=== PATIENT | male | born 1940 | race Caucasian/White ===

== ENCOUNTER 2018-03-21 06:29 | Day surgery (SDC) | payer MEDICARE, OTHER ==
[~2018-03-21 06:29] MED LIST: Acetaminophen 325 MG Tab PO SCH; Lactated Ringers 1,000 ML IV SCH; Lidocaine 1%/Sod Bicarbonate in NS 8.4% 1 ML Syringe IDERM PRN; Pregabalin 25 MG Cap PO SCH; Sodium Chloride 0.9% 10 ML Syringe FLUSH PRN; oxyCODONE ER 10 MG TAB.ER PO SCH
[2018-03-21] MEDS ORDERED: Magnesium Hydroxide 400 MG/5 ML Susp 30 ML Cup PO PRN (06:50)
[2018-03-21] MEDS ORDERED: Naloxone 0.4 MG/ML SDV IVPUSH PRN (06:50)
[2018-03-21] MEDS ORDERED: Sennosides 8.6 MG Tab PO PRN (06:50)
[2018-03-21] MEDS ORDERED: Morphine 2 MG/ML Syringe IVPUSH PRN (06:50)
[2018-03-21] MEDS ORDERED: Bisacodyl 5 MG Tab PO PRN (06:50)
[2018-03-21] MEDS ORDERED: Vancomycin 1 GM SDV ONE (07:00)
[2018-03-21] MEDS ORDERED: ceFAZolin 1 GM Vial ONE ×3 (07:00→07:53)
[2018-03-21] MEDS ORDERED: Bupivacaine 0.25% 30 ML SDV ONE (07:00)
[2018-03-21] MEDS ORDERED: Iodine/Sodium Iodide 2% Tincture 30 ML Bottle ONE (07:00)
[2018-03-21] MEDS ORDERED: fentaNYL 100 MCG/2 ML SDV ONE (07:03)
[2018-03-21] MEDS ORDERED: Propofol 200 MG/20 ML SDV ONE ×3 (07:03→09:35)
[2018-03-21] MEDS ORDERED: Lidocaine 1% 4 ML ONE (07:04)
[2018-03-21] MEDS ORDERED: Bupivacaine 0.75% 30 ML SDV ONE (07:11)
--- NOTE | 2018-03-21 07:24 | PCM.PREANE ---
Preanesthetic Assessment - Anesthesia/Transfusion/Family Hx Anesthesia History: Prior Anesthesia Reaction Type of Anesthesia Reaction: Excessive Nausea/Vomiting Family History of Anesthesia Reaction: No Transfusion History: Unknown - Review of Systems General: No Symptoms Pulmonary: No Symptoms Cardiovascular: Dyspnea on Exertion Gastrointestinal: No Symptoms Neurological: Numbness (hands), Tingling (hands) Other: Reports: Diabetes (check at 0730 ), Sinus Problem (draining) - Physical Assessment NPO Status Date: 03/20/18 NPO Status Time: 00:00 Pulse: 79 O2 Sat by Pulse Oximetry: 94 Respiratory Rate: 20 Blood Pressure: 133/68 Temperature: 37.2 C Height: 1.85 m Weight: 134.853 kg ASA Class: 3 Mental Status: Alert & Oriented x3 Airway Class: Mallampati = 1 Dentition: Reports: Partial (upper), [place](s), Missing Tooth/Teeth Thyro-Mental Finger Breadths: 3 Mouth Opening Finger Breadths: 3 ROM/Head Extension: Full Lungs: Clear to Auscultation, Normal Respiratory Effort Cardiovascular: Regular Rate, Regular Rhythm, No Murmurs - Lab Values: Laboratory Last Values MRSA (PCR) Positive H 03/09/18 13:58 - Imaging/EKG Impressions: on chart SR 67 - Allergies Allergies/Adverse Reactions: Allergies Allergy/AdvReac Type Severity Reaction Status Date / Time No Known Allergies Allergy Verified 03/18/18 15:01 - Blood Blood Available: No Product(s) Available: None - Anesthesia Plan Pre-Op Medication Ordered: Beta Sue Beta Sue: Metoprolol Med Last Dose Date: 03/21/18 Med Last Dose Time: 03:00 - Acknowledgements Anesthesia Type Planned: Spinal Pt an Appropriate Candidate for the Planned Anesthesia: Yes Alternatives and Risks of Anesthesia Discussed w Pt/Guardian: Yes Pt/Guardian Understands and Agrees with Anesthesia Plan: Yes PreAnesthesia Questionnaire HEENT History: Reports: Impaired Vision, Other (See Below) Other HEENT History: impacted cerumen, wears glasses, has partials Cardiovascular History: Reports: CAD, High Cholesterol, Other (See Below) (CABG X 4 Jul 30 2016) Respiratory History: Reports: Other (See Below) Other Respiratory History: cough Gastrointestinal History: Reports: Hepatitis (denies) Genitourinary History: Reports: BPH, UTI, Recurrent ENGINEERING SPECIALIST TECHNICIAN History: Reports: None Musculoskeletal History: Reports: Arthritis, Back Pain, Chronic, Other (See Below) Other Musculoskeletal History: back pain, right wrist pain Neurological History: Reports: Other (See Below) Other Neuro History: laminectomy, radiculopathy, spinal stenosis Psychiatric History: Reports: Anxiety, Mood Swings Endocrine/Metabolic History: Reports: Diabetes, Type II, Other (See Below) Other Endocrine/Metabolic History: goiter Hematologic History: Reports: Other (See Below) Other Hematologic History: hypokalemia, leukocytosis Immunologic History: Reports: None Oncologic (Cancer) History: Reports: None Dermatologic History: Reports: Other (See Below) Other Dermatologic History: actinic keratosis, skin lesion - Past Surgical History Head Surgeries/Procedures: Reports: None HEENT Surgical History: Reports: Tonsillectomy Cardiovascular Surgical History: Reports: Coronary Artery Bypass Respiratory Surgical History: Reports: None GI Surgical History: Reports: Appendectomy Male Surgical History: Reports: Vasectomy Endocrine Surgical History: Reports: None Neurological Surgical History: Reports: Laminectomy Musculoskeletal Surgical History: Reports: Hip Replacement, Other (See Below) Other Musculoskeletal Surgeries/Procedures:: foot surgery, total hip (right) Oncologic Surgical History: Reports: None - SUBSTANCE USE Smoking Status *Q: Never Smoker Recreational Drug Use History: No - HOME MEDS Home Medications: Home Meds Acetaminophen 325 - 650 mg PO Q6HR PRN 09/02/16 [History] Gemfibrozil [Lopid] 600 mg PO DAILY 09/02/16 [History] Potassium Chloride [Klor-Con M20] 20 meq PO DAILY 09/02/16 [History] atorvaSTATin Calcium [Atorvastatin Calcium] 80 mg PO DAILY 09/02/16 [History] Aspirin [Halfprin] 81 mg PO DAILY 03/18/18 [History] Carvedilol 12.5 mg PO BID 03/18/18 [History] Chlorthalidone 50 mg PO DAILY 03/18/18 [History] Cholecalciferol (Vitamin D3) [Vitamin D3] 5,000 unit PO DAILY 03/18/18 [History] Tamsulosin HCl 0.4 mg PO DAILY 03/18/18 [History] - CURRENT (IN HOUSE) MEDS Current Meds: Current Medications Acetaminophen (Tylenol) 975 mg PO ONETIME [facility] Stop: 03/21/18 14:00 Aspirin (Ecotrin) 325 mg PO BID [facility] Bisacodyl (Dulcolax) 5 mg PO DAILY PRN PRN Reason: Constipation Morphine Sulfate 8 mg/Epinephrine HCl 0.3 mg/Cefuroxime Sodium 750 mg/Ketorolac Tromethamine 30 mg/Sodium Chloride 27.9 ml 0 mg .XX ONETIME ONE Stop: 03/21/18 08:31 Cyclobenzaprine HCl (Flexeril) 10 mg PO TID PRN PRN Reason: Spasms Docusate Sodium (Colace) 100 mg PO BID [facility] Famotidine (Pepcid) 20 mg PO Q12H [facility] Lactated Ringer's (Ringers, Lactated) 1,000 mls @ 125 mls/hr IV ASDIRECTED [facility] Stop: 03/21/18 23:00 Cefazolin Sodium/Dextrose 2 gm (/ Premix) 50 mls @ 100 mls/hr IV Q8H [facility] Stop: 03/21/18 23:29 Ketorolac Tromethamine (Toradol) 15 mg IVPUSH Q6H PRN PRN Reason: Pain Lidocaine/Sodium Bicarbonate (Buffered Lidocaine 1% In Ns 8.4%) 0.25 ml IDERM ONETIME PRN PRN Reason: Prior to IV Start Stop: 03/21/18 18:00 Magnesium Hydroxide (Milk Of Magnesia) 30 ml PO BID PRN PRN Reason: Constipation Morphine Sulfate (Morphine) 2 mg IVPUSH Q2H PRN PRN Reason: Breakthrough Pain Naloxone HCl (Narcan) 0.1 mg IVPUSH Q5M PRN PRN Reason: Oversedation Ondansetron HCl (Zofran) 4 mg IVPUSH Q6H PRN PRN Reason: Nausea/Vomiting Oxycodone HCl (Oxycontin) 10 mg PO ONETIME [facility] Stop: 03/21/18 14:00 Oxycodone/Acetaminophen (Percocet 325-5 Mg) 1 - 2 tab PO Q4H PRN PRN Reason: Pain Pregabalin (Lyrica) 50 mg PO ONETIME [facility] Stop: 03/21/18 14:00 Senna (Senna) 8.6 mg PO BID PRN PRN Reason: Constipation Sodium Chloride (Saline Flush) 10 ml FLUSH ASDIRECTED PRN PRN Reason: Keep Vein Open Stop: 03/21/18 18:00 Vancomycin HCl (Pharmacy To Dose - Vancomycin) 1 dose .XX ASDIRECTED [facility] Discontinued Medications Bupivacaine HCl (Marcaine 0.25%) Confirm Administered Dose 30 ml .ROUTE .STK- MED ONE Stop: 03/21/18 07:01 Bupivacaine HCl (Sensorcaine-Mpf 0.75%) Confirm Administered Dose 30 ml .ROUTE .STK-MED ONE Stop: 03/21/18 07:12 Cefazolin Sodium (Ancef) Confirm Administered Dose 2 gm .ROUTE .STK-MED ONE Stop: 03/21/18 07:01 Cefazolin Sodium (Ancef) Confirm Administered Dose 2 gm .ROUTE .STK-MED ONE Stop: 03/21/18 07:05 Fentanyl (Sublimaze) Confirm Administered Dose 100 mcg .ROUTE .STK-MED ONE Stop: 03/21/18 07:04 Lidocaine HCl (Xylocaine-Mpf 1%) Confirm Administered Dose 4 mls @ as directed .ROUTE .STK-MED ONE Stop: 03/21/18 07:05 Lidocaine HCl (Xylocaine-Mpf 1%) Confirm Administered Dose 5 mls @ as directed .ROUTE .STK-MED ONE Stop: 03/21/18 07:12 Iodine (Iodine 2% Mild Tincture) Confirm Administered Dose 30 ml .ROUTE .STK- MED ONE Stop: 03/21/18 07:01 Propofol (Diprivan 20 Ml) Confirm Administered Dose 200 mg .ROUTE .STK-MED ONE Stop: 03/21/18 07:04 Tranexamic Acid (Cyklokapron) Confirm Administered Dose 1,000 mg .ROUTE .STK- MED ONE Stop: 03/21/18 07:01 Vancomycin HCl (Vancomycin) Confirm Administered Dose 1 gm .ROUTE .STK-MED ONE Stop: 03/21/18 07:01
[2018-03-21] MEDS ORDERED: Vancomycin 2 GM in Sodium Chloride 0.9% 500 ML IV ONE (07:30)
[2018-03-21] MEDS ORDERED: EPINEPHrine 1 MG/ML SDV ONE (07:35)
[2018-03-21] MEDS ORDERED: Ropivacaine 0.5% 5 MG/ML 30 ML SDV ONE (07:35)
[2018-03-21] MEDS ORDERED: Lactated Ringers 1,000 ML ONE (08:45)
[2018-03-21] MEDS: Morphine 8 MG, EPINEPHrine 0.3 MG, Cefuroxime 750 MG, Ketorolac 30 MG, Sodium Chloride ... ONE ×10 (09:26→16:33)
[2018-03-21] MEDS ORDERED: fentaNYL 100 MCG/2 ML SDV IVPUSH PRN (10:11)
[2018-03-21] MEDS ORDERED: Ketorolac 30 MG/ML SDV IVPUSH PRN (10:11)
--- NOTE | 2018-03-21 10:13 | PCM.POSTAN ---
POST ANESTHESIA ASSESSMENT - MENTAL STATUS Mental Status: Alert, Oriented - VITAL SIGNS Pulse Rate: 67 SaO2: 95 Resp Rate: 12 Blood Pressure: 127/64 Temperature: 36.8 C - RESPIRATORY Respiratory Status: Respiratory Rate WNL, Airway Patent, O2 Saturation Stable, Supplemental Oxygen - CARDIOVASCULAR CV Status: Pulse Rate WNL, Blood Pressure Stable - GASTROINTESTINAL GI Status: No Symptoms - PAIN Pain Score: 0 - POST OP HYDRATION Hydration Status: Adequate & Stable - OBSERVATIONS Free Text/Narrative:: no anesthesia complications noted
--- NOTE | 2018-03-21 10:53 | PCM.SN ---
- Free Text/Narrative Note: Left selective femoral nerve block at the adductor canal for post-procedure pain control Time Out: 1029 Start: 1029 End: 1040 Chart reviewed. Consent signed. Questions answered. Appropriate monitors applied. Time out performed. Left mid-shaft femur evaluated with ultrasound. Scanning medially femur, I was able to identify the femoral artery in the adductor canal. The saphenous nerve was lateral to the artery. The skin was prepped lateral to the ultrasound probe with chlorahexadine. The 21ga 4 insulated block needle was inserted under direct ultrasound guidance into the adductor canal. 25 mL of 0.5% ropivacaine with 1:200,000 epinephrine was injected cirmcumferentially about the nerve with intermittent negative aspiration every 5mL. Patient tolerated the procedure well. See pictures on progress note and vital signs on nurses notes. Block completed postoperatively. Uri Marino CRNA
[2018-03-21] MEDS: Acetaminophen/oxyCODONE 325-5 MG Tab PO PRN ×2 (14:00→20:51)
[2018-03-21] MEDS: Ketorolac 15 MG/ML SDV IVPUSH PRN ×2 (14:00→20:52)
[2018-03-21] MEDS: ceFAZolin 2 GM in Premix Bag 1 BAG IV SCH (14:01)
[2018-03-21] MEDS: Ondansetron 4 MG/2 ML SDV IVPUSH PRN (15:38)
--- NOTE | 2018-03-21 18:55 | PCM.SN ---
- Free Text/Narrative Note: In to see Abner. Overall he is doing well s/p L TKA day 0. He currently states his pain is controlled. He did have some nausea earlier today after working with PT but Zofran was given and he is feeling better. Denies F/C, Headache, V/D, Chest pain, SOB, Cough. Working with Physical Therapy. Urinating. Using Incentive Spirometry. No supplemental O2. DVT prophylaxis. Physical Exam unremarkable- PERRLA, Lungs Clear, Normal Heart sounds, Neurovascularly intact in extremities with 2+ pulses. No other concerns from nursing.
[2018-03-21] MEDS: Gemfibrozil 600 MG Tab PO SCH (20:53)
[2018-03-21] MEDS: Potassium Chloride 20 MEQ Tab.ER PO SCH (20:53)
[2018-03-21] MEDS: Docusate Sodium 100 MG Cap PO SCH (20:53)
[2018-03-21] MEDS: Famotidine 20 MG Tab PO SCH (20:54)
[2018-03-21] MEDS: Carvedilol 12.5 MG Tab PO SCH (20:54)
[2018-03-21] MEDS ORDERED: Cyclobenzaprine 10 MG Tab PO PRN (21:00)
[2018-03-22] MEDS: Acetaminophen/oxyCODONE 325-5 MG Tab PO PRN ×3 (01:13→13:42)
[2018-03-22] MEDS: ceFAZolin 2 GM in Premix Bag 1 BAG IV SCH ×2 (01:13→06:24)
[2018-03-22] MEDS: Ketorolac 15 MG/ML SDV IVPUSH PRN (06:25)
--- NOTE | 2018-03-22 06:51 | PCM.CONSN ---
- General Info Date of Service: 03/22/18 Subjective Update: In to see Abner. He was having some nausea this AM which has since resolved. He has been working with therapies and doing well. No patient or nursing concerns. Functional Status: Reports: Pain Controlled, Tolerating Diet, Ambulating, Urinating, Incentive Spirometry. Denies: New Symptoms - Review of Systems General: Reports: No Symptoms. Denies: Weakness, Fatigue, Malaise HEENT: Reports: No Symptoms. Denies: Headaches, Sore Throat Pulmonary: Reports: No Symptoms. Denies: Shortness of Breath, Cough, Sputum, Wheezing Cardiovascular: Reports: No Symptoms. Denies: Chest Pain, Palpitations Gastrointestinal: Reports: No Symptoms. Denies: Abdominal Pain, Constipation, Diarrhea, Nausea (earlier but has since resolved ), Vomiting Genitourinary: Reports: No Symptoms Musculoskeletal: Reports: No Symptoms Skin: Reports: No Symptoms Neurological: Reports: No Symptoms. Denies: Confusion Psychiatric: Reports: No Symptoms - Patient Data Vitals - Most Recent: Last Vital Signs Temp 98.4 F 03/21/18 15:44 Pulse 70 03/21/18 20:54 Resp 16 03/21/18 15:44 BP 117/76 03/21/18 20:54 Pulse Ox 92 L 03/21/18 22:39 Weight - Most Recent: 297 lb 4.8 oz I&O - Last 24 Hours: Intake & Output 03/21/18 03/21/18 03/22/18 14:59 22:59 06:59 Intake Total 125 970 Output Total 175 450 Balance -50 520 Lab Results Last 24 Hours: Laboratory Results - last 24 hr 03/21/18 03/22/18 03/22/18 Range/Units 07:34 05:18 05:18 WBC 10.63 H (4.23-9.07) K/mm3 RBC 3.93 L (4.63-6.08) M/mm3 Hgb 12.8 L (13.7-17.5) gm/L Hct 37.7 L (40.1-51.0) % MCV 95.9 H (79.0-92.2) fl MCH 32.6 H (25.7-32.2) pg MCHC 34.0 (32.2-35.5) g/dl RDW Std Deviation 43.2 (35.1-43.9) fL Plt Count 180 (163-337) K/mm3 MPV 9.0 L (9.4-12.3) fl Sodium 140 (136-145) mEq/L Potassium 3.6 (3.5-5.1) mEq/L Chloride 104 (98-107) mEq/L Carbon Dioxide 29 (21-32) mEq/L Anion Gap 10.6 (5-15) BUN 22 H (7-18) mg/dL Creatinine 1.3 (0.7-1.3) mg/dL Est Cr Clr Drug Dosing 52.07 mL/min Estimated GFR (MDRD) 53 (>60) mL/min BUN/Creatinine Ratio 16.9 (14-18) Glucose 150 H (83-115) mg/dL POC Glucose 134 H (83-110) mg/dL Calcium 8.8 (8.5-10.1) mg/dL Total Bilirubin 0.9 (0.2-1.0) mg/dL AST 23 (15-37) U/L ALT 16 (16-63) U/L Alkaline Phosphatase 86 (46-116) U/L Total Protein 6.5 (6.4-8.2) g/dl Albumin 3.1 L (3.4-5.0) g/dl Globulin 3.4 gm/dL Albumin/Globulin Ratio 0.9 L (1-2) Med Orders - Current: Current Medications Aspirin (Ecotrin) 325 mg PO BID [facility] Bisacodyl (Dulcolax) 5 mg PO DAILY PRN PRN Reason: Constipation Carvedilol (Coreg) 12.5 mg PO BID [facility] Last Admin: 03/21/18 20:54 Dose: 12.5 mg Cholecalciferol (Vitamin D3) 5,000 unit PO DAILY [facility] Cyclobenzaprine HCl (Flexeril) 10 mg PO TID PRN PRN Reason: Spasms Docusate Sodium (Colace) 100 mg PO BID [facility] Last Admin: 03/21/18 20:53 Dose: 100 mg Famotidine (Pepcid) 20 mg PO Q12H [facility] Last Admin: 03/21/18 20:54 Dose: 20 mg Gemfibrozil (Lopid) 600 mg PO BID [facility] Last Admin: 03/21/18 20:53 Dose: 600 mg Cefazolin Sodium/Dextrose 2 gm (/ Premix) 50 mls @ 100 mls/hr IV Q8H [facility] Stop: 03/22/18 07:29 Last Admin: 03/22/18 06:24 Dose: 100 mls/hr Lisinopril (Prinivil) 40 mg PO DAILY [facility] Magnesium Hydroxide (Milk Of Magnesia) 30 ml PO BID PRN PRN Reason: Constipation Morphine Sulfate (Morphine) 2 mg IVPUSH Q2H PRN PRN Reason: Breakthrough Pain Multivitamins (Thera) 1 each PO DAILY [facility] Naloxone HCl (Narcan) 0.1 mg IVPUSH Q5M PRN PRN Reason: Oversedation Ondansetron HCl (Zofran) 4 mg IVPUSH Q6H PRN PRN Reason: Nausea/Vomiting Last Admin: 03/21/18 15:38 Dose: 4 mg Oxycodone/Acetaminophen (Percocet 325-5 Mg) 1 - 2 tab PO Q4H PRN PRN Reason: Pain Last Admin: 03/22/18 06:24 Dose: 2 tab Chlorthalidone 50 Mg 0 each PO DAILY [facility] Potassium Chloride (Klor-Con M20) 20 meq PO BID [facility] Last Admin: 03/21/18 20:53 Dose: 20 meq Rosuvastatin Calcium (Crestor) 20 mg PO DAILY [facility] Senna (Senna) 8.6 mg PO BID PRN PRN Reason: Constipation Tamsulosin HCl (Flomax) 0.4 mg PO DAILY [facility] Discontinued Medications Acetaminophen (Tylenol) 975 mg PO ONETIME [facility] Stop: 03/21/18 14:00 Last Admin: 03/21/18 07:35 Dose: 975 mg Bupivacaine HCl (Marcaine 0.25%) Confirm Administered Dose 30 ml .ROUTE .STK- MED ONE Stop: 03/21/18 07:01 Last Admin: 03/21/18 09:26 Dose: 30 ml Bupivacaine HCl (Sensorcaine-Mpf 0.75%) Confirm Administered Dose 30 ml .ROUTE .STK-MED ONE Stop: 03/21/18 07:12 Cefazolin Sodium (Ancef) Confirm Administered Dose 2 gm .ROUTE .STK-MED ONE Stop: 03/21/18 07:01 Last Admin: 03/21/18 09:22 Dose: 2 gm Cefazolin Sodium (Ancef) Confirm Administered Dose 2 gm .ROUTE .STK-MED ONE Stop: 03/21/18 07:05 Cefazolin Sodium (Ancef) Confirm Administered Dose 1 gm .ROUTE .STK-MED ONE Stop: 03/21/18 07:54 Morphine Sulfate 8 mg/Epinephrine HCl 0.3 mg/Cefuroxime Sodium 750 mg/Ketorolac Tromethamine 30 mg/Sodium Chloride 27.9 ml 0 mg .XX ONETIME ONE Stop: 03/21/18 08:31 Last Admin: 03/21/18 16:33 Dose: Not Given Epinephrine HCl (Adrenalin) Confirm Administered Dose 1 mg .ROUTE .STK-MED ONE Stop: 03/21/18 07:36 Fentanyl (Sublimaze) Confirm Administered Dose 100 mcg .ROUTE .STK-MED ONE Stop: 03/21/18 07:04 Fentanyl (Sublimaze) 50 mcg IVPUSH Q5M PRN PRN Reason: Pain Stop: 03/21/18 18:00 Lactated Ringer's (Ringers, Lactated) 1,000 mls @ 125 mls/hr IV ASDIRECTED [facility] Stop: 03/21/18 23:00 Last Admin: 03/21/18 07:40 Dose: 125 mls/hr Lidocaine HCl (Xylocaine-Mpf 1%) Confirm Administered Dose 4 mls @ as directed .ROUTE .STK-MED ONE Stop: 03/21/18 07:05 Lidocaine HCl (Xylocaine-Mpf 1%) Confirm Administered Dose 5 mls @ as directed .ROUTE .STK-MED ONE Stop: 03/21/18 07:12 Vancomycin HCl 2 gm/ Sodium (Chloride) 500 mls @ 250 mls/hr IV ONETIME ONE Stop: 03/21/18 09:29 Last Admin: 03/21/18 07:55 Dose: 250 mls/hr Lactated Ringer's (Ringers, Lactated) Confirm Administered Dose 1,000 mls @ as directed .ROUTE .STK-MED ONE Stop: 03/21/18 08:46 Iodine (Iodine 2% Mild Tincture) Confirm Administered Dose 30 ml .ROUTE .STK- MED ONE Stop: 03/21/18 07:01 Last Admin: 03/21/18 09:20 Dose: 18 ml Ketorolac Tromethamine (Toradol) 15 mg IVPUSH Q6H PRN PRN Reason: Pain Last Admin: 03/22/18 06:25 Dose: 15 mg Ketorolac Tromethamine (Toradol) 30 mg IVPUSH ONETIME PRN PRN Reason: Pain Stop: 03/21/18 18:00 Lidocaine/Sodium Bicarbonate (Buffered Lidocaine 1% In Ns 8.4%) 0.25 ml IDERM ONETIME PRN PRN Reason: Prior to IV Start Stop: 03/21/18 18:00 Last Admin: 03/21/18 07:39 Dose: 0.25 ml Oxycodone HCl (Oxycontin) 10 mg PO ONETIME [facility] Stop: 03/21/18 14:00 Last Admin: 03/21/18 07:35 Dose: 10 mg Pregabalin (Lyrica) 50 mg PO ONETIME [facility] Stop: 03/21/18 14:00 Last Admin: 03/21/18 07:35 Dose: 50 mg Propofol (Diprivan 20 Ml) Confirm Administered Dose 200 mg .ROUTE .STK-MED ONE Stop: 03/21/18 07:04 Propofol (Diprivan 20 Ml) Confirm Administered Dose 200 mg .ROUTE .STK-MED ONE Stop: 03/21/18 09:00 Propofol (Diprivan 20 Ml) Confirm Administered Dose 200 mg .ROUTE .STK-MED ONE Stop: 03/21/18 09:36 Ropivacaine (Naropin 0.5%) Confirm Administered Dose 30 ml .ROUTE .STK-MED ONE Stop: 03/21/18 07:36 Sodium Chloride (Saline Flush) 10 ml FLUSH ASDIRECTED PRN PRN Reason: Keep Vein Open Stop: 03/21/18 18:00 Tranexamic Acid (Cyklokapron) Confirm Administered Dose 1,000 mg .ROUTE .STK- MED ONE Stop: 03/21/18 07:01 Last Admin: 03/21/18 09:29 Dose: 1,000 mg Vancomycin HCl (Vancomycin) Confirm Administered Dose 1 gm .ROUTE .STK-MED ONE Stop: 03/21/18 07:01 Last Admin: 03/21/18 09:28 Dose: 1 gm Vancomycin HCl (Pharmacy To Dose - Vancomycin) 0 dose .XX ASDIRECTED PRN PRN Reason: RX TO DOSE VANCOMYCIN Stop: 03/21/18 12:00 - Exam Quality Assessment: DVT Prophylaxis General: Alert, Oriented, Cooperative, No Acute Distress HEENT: Pupils Equal, Pupils Reactive, EOMI, Mucous Membr. Moist/[place] Neck: Supple Lungs: Clear to Auscultation, Normal Respiratory Effort Cardiovascular: Regular Rate, Regular Rhythm GI/Abdominal Exam: Normal Bowel Sounds, Soft, Non-Tender, No Organomegaly, No Distention (Male) Exam: Deferred, Testicular Tenderness (R) Back Exam: Full Range of Motion Extremities: No Pedal Edema, Normal Capillary Refill, Leg Pain, Limited Range of Motion, Other (Bandage in place on left leg. Cooling pack in place ) Peripheral Pulses: 2+: Radial (L), Radial (R), Dorsalis Pedis (L), Dorsalis Pedis (R) Skin: Warm, Dry, Intact Wound/Incisions: Dressing Dry and Intact, No Drainage Neurological: No New Focal Deficit Psy/Mental Status: Alert, Normal Affect, Normal Mood Consult PN Assessment/Plan POD#: 1 Procedures: Procedures ASSAY OF CK (CPK) (11/15/14) ASSAY OF PREALBUMIN (02/22/18) ASSAY OF PSA TOTAL (08/31/17) ASSAY OF SERUM ALBUMIN (02/22/18) ASSAY THYROID STIM HORMONE (10/26/16) C-REACTIVE PROTEIN (11/11/16) CARDIAC REHAB/MONITOR (10/07/16) CARDIOVASCULAR STRESS TEST (07/15/16) CHEST X-RAY 2VW FRONTAL&LATL (10/14/16) COMPLETE CBC W/AUTO DIFF WBC (11/11/16) COMPREHEN METABOLIC PANEL (10/26/16) DRAIN/INJ JOINT/BURSA W/O US (10/15/17) DXA BONE DENSITY AXIAL (02/25/18) GLYCOSYLATED HEMOGLOBIN TEST (02/22/18) HT MUSCLE IMAGE SPECT MULT (07/15/16) LIPID PANEL (10/11/17) METABOLIC PANEL TOTAL CA (02/22/18) MRI CHEST SPINE W/O DYE (01/06/17) MRI LUMBAR SPINE W/O DYE (09/15/17) PROTHROMBIN TIME (02/22/18) ROUTINE VENIPUNCTURE (09/23/15) THROMBOPLASTIN TIME PARTIAL (02/22/18) UR ALBUMIN QUANTITATIVE (10/01/16) URINALYSIS AUTO W/SCOPE (02/22/18) URINE CULTURE/COLONY COUNT (02/22/18) X-RAY EXAM CHEST 2 VIEWS (02/22/18) X-RAY EXAM OF WRIST (10/03/15) (1) S/P total knee arthroplasty SNOMED Code(s): 3966770760121, 986319622, 9514146912798 Code(s): Z96.659 - PRESENCE OF UNSPECIFIED ARTIFICIAL KNEE JOINT Priority: High Current Visit: Yes Qualifiers: Laterality: left Qualified Code(s): Z96.652 - Presence of left artificial knee joint (2) Osteoarthritis SNOMED Code(s): 560351197 Code(s): M19.90 - UNSPECIFIED OSTEOARTHRITIS, UNSPECIFIED SITE Priority: High Current Visit: Yes Qualifiers: Osteoarthritis location: knee Osteoarthritis type: primary Laterality: left Qualified Code(s): M17.12 - Unilateral primary osteoarthritis, left knee (3) BPH (benign prostatic hyperplasia) SNOMED Code(s): 723884597 Code(s): N40.0 - BENIGN PROSTATIC HYPERPLASIA WITHOUT LOWER URINRY TRACT SYMP Priority: Low Current Visit: No Qualifiers: Lower urinary tract symptom presence: unspecified whether lower urinary tract symptoms present Qualified Code(s): N40.0 - Benign prostatic hyperplasia without lower urinary tract symptoms (4) CAD (coronary artery disease) SNOMED Code(s): 14699002 Code(s): I25.10 - ATHSCL HEART DISEASE OF [place] CORONARY ARTERY W/O ANG PCTRS Priority: Medium Current Visit: No Qualifiers: Coronary Disease-Associated Artery/Lesion type: unspecified vessel or lesion type [place] vs. transplanted heart: [place] heart Associated angina: angina presence unspecified Qualified Code(s): I25.10 - Atherosclerotic heart disease of [place] coronary artery without angina pectoris (5) Type II diabetes mellitus SNOMED Code(s): 56597582 Code(s): E11.9 - TYPE 2 DIABETES MELLITUS WITHOUT COMPLICATIONS Priority: Medium Current Visit: Yes Qualifiers: Diabetes mellitus snf insulin use: without supervisor intermediates use Diabetes mellitus complication status: with unspecified complications Qualified Code(s) : E11.8 - Type 2 diabetes mellitus with unspecified complications (6) HTN (hypertension) SNOMED Code(s): 30732695 Code(s): I10 - ESSENTIAL (PRIMARY) HYPERTENSION Priority: Medium Current Visit: No Qualifiers: Hypertension type: unspecified Qualified Code(s): I10 - Essential (primary ) hypertension (7) S/P CABG (coronary artery bypass graft) SNOMED Code(s): 724255274, 758358352, 202947374 Code(s): Z95.1 - PRESENCE OF AORTOCORONARY BYPASS GRAFT Priority: Medium Current Visit: No (8) Elevated LFTs SNOMED Code(s): 537933162, 058122711 Code(s): R94.5 - ABNORMAL RESULTS OF LIVER FUNCTION STUDIES Priority: Low Current Visit: No (9) Goiter SNOMED Code(s): 6858763 Code(s): E04.9 - NONTOXIC GOITER, UNSPECIFIED Priority: Low Current Visit : No (10) Anxiety SNOMED Code(s): 81908988 Code(s): F41.9 - ANXIETY DISORDER, UNSPECIFIED Priority: Low Current Visit: No (11) History of hepatitis B SNOMED Code(s): 873805315 Code(s): Z86.19 - PERSONAL HISTORY OF OTHER INFECTIOUS AND PARASITIC DISEASES Priority: Low Current Visit: No (12) HLD (hyperlipidemia) SNOMED Code(s): 19233545 Code(s): E78.5 - HYPERLIPIDEMIA, UNSPECIFIED Priority: Low Current Visit : No Qualifiers: Hyperlipidemia type: unspecified Qualified Code(s): E78.5 - Hyperlipidemia , unspecified (13) Positive result for methicillin resistant Staphylococcus aureus (MRSA) screening SNOMED Code(s): 616526132 Code(s): A49.02 - METHICILLIN RESIS STAPH INFECTION, UNSP SITE Priority: Medium Current Visit: No Comment: Nasal swab Problem List Initiated/Reviewed/Updated: Yes Plan: I/P: Acute: S/P left total knee arthroplasty - post-operative day 1 -DVT prophylaxis and pain management per primary care team -PT/OT -IS/RT -Monitor oxygen saturation -Titrate oxygen as needed -Vital signs stable -Monitor labs -Pre-operative Hgb was 15.5, now 12.8 -Pre-operative GFR was >60, now 53 Osteoarthritis of left knee -Pain management per primary care team Post-operative nausea, resolved -Has not vomited -Zofran and scopolamine as needed Chronic: BPH CAD Type II DM HTN Hx/o CABG Lammectomy stenosis Hx/o Abnormal LFTs [place] Anxiety Hx/o Hepatitis B HLD Positive MRSA screen pre-operatively Plan: CM for discharge planning GI prophylaxis Home medications as indicated Other orders as listed above Routine AM labs He is a full code. His PCP is Cassie Ng NP Overall from a hospitalist standpoint Abner is doing well. Labs and vital signs have been stable and pain is controlled. He has been up working with therapies. He has urinated and he is off oxygen. He has been utilizing his IS. He was nauseated this AM which hindered his ability to work with therapies. Zofran and a scopolamine patch were ordered and his nausea resolved. He is cleared from discharge pending primary team and PT/OT approval. Thank you for allowing us to participate in the care of this patient!!
--- NOTE | 2018-03-22 07:41 | CR ---
Left knee: AP and lateral views of the left knee were obtained. Comparison: No prior left knee exam. Knee prosthesis is seen. Components are aligned. Underlying bony structures are intact. Soft tissue air is seen. Impression: 1. Satisfactory postop radiographic appearance of recently placed left knee prosthesis. Diagnostic code #2
--- NOTE | 2018-03-22 07:42 | PCM.SURGPN ---
- General Info Date of Service: 03/22/18 POD#: 1 Functional Status: Reports: Pain Controlled, Tolerating Diet, Ambulating, Urinating, Incentive Spirometry - Patient Data Vitals - Most Recent: Last Vital Signs Temp 98.2 F 03/22/18 06:24 Pulse 79 03/22/18 06:24 Resp 18 03/22/18 06:24 BP 135/73 03/22/18 06:24 Pulse Ox 92 L 03/22/18 06:24 Weight - Most Recent: 297 lb 4.8 oz I&O - Last 24 Hours: Intake & Output 03/21/18 03/22/18 03/22/18 22:59 06:59 14:59 Intake Total 970 400 Output Total 450 600 Balance 520 -200 Lab Results Last 24 Hrs: Laboratory Results - last 24 hr 03/21/18 03/22/18 03/22/18 Range/Units 07:34 05:18 05:18 WBC 10.63 H (4.23-9.07) K/mm3 RBC 3.93 L (4.63-6.08) M/mm3 Hgb 12.8 L (13.7-17.5) gm/L Hct 37.7 L (40.1-51.0) % MCV 95.9 H (79.0-92.2) fl MCH 32.6 H (25.7-32.2) pg MCHC 34.0 (32.2-35.5) g/dl RDW Std Deviation 43.2 (35.1-43.9) fL Plt Count 180 (163-337) K/mm3 MPV 9.0 L (9.4-12.3) fl Sodium 140 (136-145) mEq/L Potassium 3.6 (3.5-5.1) mEq/L Chloride 104 (98-107) mEq/L Carbon Dioxide 29 (21-32) mEq/L Anion Gap 10.6 (5-15) BUN 22 H (7-18) mg/dL Creatinine 1.3 (0.7-1.3) mg/dL Est Cr Clr Drug Dosing 52.07 mL/min Estimated GFR (MDRD) 53 (>60) mL/min BUN/Creatinine Ratio 16.9 (14-18) Glucose 150 H (83-115) mg/dL POC Glucose 134 H (83-110) mg/dL Calcium 8.8 (8.5-10.1) mg/dL Total Bilirubin 0.9 (0.2-1.0) mg/dL AST 23 (15-37) U/L ALT 16 (16-63) U/L Alkaline Phosphatase 86 (46-116) U/L Total Protein 6.5 (6.4-8.2) g/dl Albumin 3.1 L (3.4-5.0) g/dl Globulin 3.4 gm/dL Albumin/Globulin Ratio 0.9 L (1-2) Med Orders - Current: Current Medications Aspirin (Ecotrin) 325 mg PO BID [facility] Bisacodyl (Dulcolax) 5 mg PO DAILY PRN PRN Reason: Constipation Carvedilol (Coreg) 12.5 mg PO BID [facility] Last Admin: 03/21/18 20:54 Dose: 12.5 mg Cholecalciferol (Vitamin D3) 5,000 unit PO DAILY [facility] Cyclobenzaprine HCl (Flexeril) 10 mg PO TID PRN PRN Reason: Spasms Docusate Sodium (Colace) 100 mg PO BID [facility] Last Admin: 03/21/18 20:53 Dose: 100 mg Famotidine (Pepcid) 20 mg PO Q12H [facility] Last Admin: 03/21/18 20:54 Dose: 20 mg Gemfibrozil (Lopid) 600 mg PO BID [facility] Last Admin: 03/21/18 20:53 Dose: 600 mg Lisinopril (Prinivil) 40 mg PO DAILY [facility] Magnesium Hydroxide (Milk Of Magnesia) 30 ml PO BID PRN PRN Reason: Constipation Morphine Sulfate (Morphine) 2 mg IVPUSH Q2H PRN PRN Reason: Breakthrough Pain Multivitamins (Thera) 1 each PO DAILY [facility] Naloxone HCl (Narcan) 0.1 mg IVPUSH Q5M PRN PRN Reason: Oversedation Ondansetron HCl (Zofran) 4 mg IVPUSH Q6H PRN PRN Reason: Nausea/Vomiting Last Admin: 03/21/18 15:38 Dose: 4 mg Oxycodone/Acetaminophen (Percocet 325-5 Mg) 1 - 2 tab PO Q4H PRN PRN Reason: Pain Last Admin: 03/22/18 06:24 Dose: 2 tab Chlorthalidone 50 Mg 0 each PO DAILY [facility] Potassium Chloride (Klor-Con M20) 20 meq PO BID [facility] Last Admin: 03/21/18 20:53 Dose: 20 meq Rosuvastatin Calcium (Crestor) 20 mg PO DAILY [facility] Senna (Senna) 8.6 mg PO BID PRN PRN Reason: Constipation Tamsulosin HCl (Flomax) 0.4 mg PO DAILY [facility] Discontinued Medications Acetaminophen (Tylenol) 975 mg PO ONETIME [facility] Stop: 03/21/18 14:00 Last Admin: 03/21/18 07:35 Dose: 975 mg Bupivacaine HCl (Marcaine 0.25%) Confirm Administered Dose 30 ml .ROUTE .STK- MED ONE Stop: 03/21/18 07:01 Last Admin: 03/21/18 09:26 Dose: 30 ml Bupivacaine HCl (Sensorcaine-Mpf 0.75%) Confirm Administered Dose 30 ml .ROUTE .STK-MED ONE Stop: 03/21/18 07:12 Cefazolin Sodium (Ancef) Confirm Administered Dose 2 gm .ROUTE .STK-MED ONE Stop: 03/21/18 07:01 Last Admin: 03/21/18 09:22 Dose: 2 gm Cefazolin Sodium (Ancef) Confirm Administered Dose 2 gm .ROUTE .STK-MED ONE Stop: 03/21/18 07:05 Cefazolin Sodium (Ancef) Confirm Administered Dose 1 gm .ROUTE .STK-MED ONE Stop: 03/21/18 07:54 Morphine Sulfate 8 mg/Epinephrine HCl 0.3 mg/Cefuroxime Sodium 750 mg/Ketorolac Tromethamine 30 mg/Sodium Chloride 27.9 ml 0 mg .XX ONETIME ONE Stop: 03/21/18 08:31 Last Admin: 03/21/18 16:33 Dose: Not Given Epinephrine HCl (Adrenalin) Confirm Administered Dose 1 mg .ROUTE .STK-MED ONE Stop: 03/21/18 07:36 Fentanyl (Sublimaze) Confirm Administered Dose 100 mcg .ROUTE .STK-MED ONE Stop: 03/21/18 07:04 Fentanyl (Sublimaze) 50 mcg IVPUSH Q5M PRN PRN Reason: Pain Stop: 03/21/18 18:00 Lactated Ringer's (Ringers, Lactated) 1,000 mls @ 125 mls/hr IV ASDIRECTED [facility] Stop: 03/21/18 23:00 Last Admin: 03/21/18 07:40 Dose: 125 mls/hr Cefazolin Sodium/Dextrose 2 gm (/ Premix) 50 mls @ 100 mls/hr IV Q8H [facility] Stop: 03/22/18 07:29 Last Admin: 03/22/18 06:24 Dose: 100 mls/hr Lidocaine HCl (Xylocaine-Mpf 1%) Confirm Administered Dose 4 mls @ as directed .ROUTE .STK-MED ONE Stop: 03/21/18 07:05 Lidocaine HCl (Xylocaine-Mpf 1%) Confirm Administered Dose 5 mls @ as directed .ROUTE .STK-MED ONE Stop: 03/21/18 07:12 Vancomycin HCl 2 gm/ Sodium (Chloride) 500 mls @ 250 mls/hr IV ONETIME ONE Stop: 03/21/18 09:29 Last Admin: 03/21/18 07:55 Dose: 250 mls/hr Lactated Ringer's (Ringers, Lactated) Confirm Administered Dose 1,000 mls @ as directed .ROUTE .STK-MED ONE Stop: 03/21/18 08:46 Iodine (Iodine 2% Mild Tincture) Confirm Administered Dose 30 ml .ROUTE .STK- MED ONE Stop: 03/21/18 07:01 Last Admin: 03/21/18 09:20 Dose: 18 ml Ketorolac Tromethamine (Toradol) 15 mg IVPUSH Q6H PRN PRN Reason: Pain Last Admin: 03/22/18 06:25 Dose: 15 mg Ketorolac Tromethamine (Toradol) 30 mg IVPUSH ONETIME PRN PRN Reason: Pain Stop: 03/21/18 18:00 Lidocaine/Sodium Bicarbonate (Buffered Lidocaine 1% In Ns 8.4%) 0.25 ml IDERM ONETIME PRN PRN Reason: Prior to IV Start Stop: 03/21/18 18:00 Last Admin: 03/21/18 07:39 Dose: 0.25 ml Oxycodone HCl (Oxycontin) 10 mg PO ONETIME [facility] Stop: 03/21/18 14:00 Last Admin: 03/21/18 07:35 Dose: 10 mg Pregabalin (Lyrica) 50 mg PO ONETIME [facility] Stop: 03/21/18 14:00 Last Admin: 03/21/18 07:35 Dose: 50 mg Propofol (Diprivan 20 Ml) Confirm Administered Dose 200 mg .ROUTE .STK-MED ONE Stop: 03/21/18 07:04 Propofol (Diprivan 20 Ml) Confirm Administered Dose 200 mg .ROUTE .STK-MED ONE Stop: 03/21/18 09:00 Propofol (Diprivan 20 Ml) Confirm Administered Dose 200 mg .ROUTE .STK-MED ONE Stop: 03/21/18 09:36 Ropivacaine (Naropin 0.5%) Confirm Administered Dose 30 ml .ROUTE .STK-MED ONE Stop: 03/21/18 07:36 Sodium Chloride (Saline Flush) 10 ml FLUSH ASDIRECTED PRN PRN Reason: Keep Vein Open Stop: 03/21/18 18:00 Tranexamic Acid (Cyklokapron) Confirm Administered Dose 1,000 mg .ROUTE .STK- MED ONE Stop: 03/21/18 07:01 Last Admin: 03/21/18 09:29 Dose: 1,000 mg Vancomycin HCl (Vancomycin) Confirm Administered Dose 1 gm .ROUTE .STK-MED ONE Stop: 03/21/18 07:01 Last Admin: 03/21/18 09:28 Dose: 1 gm Vancomycin HCl (Pharmacy To Dose - Vancomycin) 0 dose .XX ASDIRECTED PRN PRN Reason: RX TO DOSE VANCOMYCIN Stop: 03/21/18 12:00 - Exam Wound/Incisions: Dressing Dry and Intact Quality Assessment: Supplemental Oxygen General: Alert, Cooperative, No Acute Distress Lungs: Normal Respiratory Effort Extremities: Other (NVS intact for LLE. Nelson's negative.) - Problem List Review Problem List Initiated/Reviewed/Updated: Yes - My Orders Last 24 Hours: Active Orders 24 hr Category Date Time Status Patient Status [ADT] Routine ADT 03/21/18 06:50 Active Ambulate [RC] PER UNIT ROUTINE Care 03/21/18 06:50 Active Communication Order [RC] ROUTINE Care 03/21/18 10:10 Active Cooling Warming Measures [RC] ASDIRECTED Care 03/21/18 10:10 Active May Shower [RC] ASDIRECTED Care 03/21/18 06:50 Active Notify Provider Consults [RC] ASDIRECTED Care 03/21/18 06:52 Active Notify Provider [RC] ASDIRECTED Care 03/21/18 10:10 Active Oxygen Therapy [RC] ASDIRECTED Care 03/21/18 10:10 Active Oxygen Therapy [RC] PRN Care 03/21/18 06:50 Active Pulse Oximetry [RC] ASDIRECTED Care 03/21/18 10:10 Active RT Incentive Spirometry [RC] Q1HWA Care 03/21/18 06:49 Active Up to Chair [RC] ASDIRECTED Care 03/21/18 06:50 Active Vital Signs [RC] Q4HR Care 03/21/18 06:50 Active Consult to Physician [CONS] Routine Cons 03/21/18 06:50 Active OT Evaluation and Treatment [CONS] Routine Cons 03/21/18 06:49 Active PT Evaluation and Treatment [CONS] Routine Cons 03/21/18 06:49 Active Regular Diet [DIET] Diet 03/21/18 Lunch Active Knee 1V or 2V Lt [CR] Exams 03/21/18 10:25 Taken Acetaminophen/oxyCODONE [Percocet 325-5 MG] Med 03/21/18 06:50 Active 1 - 2 tab PO Q4H PRN Aspirin [Ecotrin] Med 03/22/18 09:00 Active 325 mg PO BID Bisacodyl [Dulcolax] Med 03/21/18 06:50 Active 5 mg PO DAILY PRN Carvedilol [Coreg] Med 03/21/18 21:00 Active 12.5 mg PO BID Cholecalciferol (Vitamin D3) [Vitamin D3] Med 03/22/18 09:00 Active 5,000 unit PO DAILY Cyclobenzaprine [Flexeril] Med 03/21/18 21:00 Active 10 mg PO TID PRN Docusate Sodium [Colace] Med 03/21/18 21:00 Active 100 mg PO BID Famotidine [Pepcid] Med 03/21/18 21:00 Active 20 mg PO Q12H Gemfibrozil [Lopid] Med 03/21/18 21:00 Active 600 mg PO BID Lisinopril [Prinivil] Med 03/22/18 09:00 Active 40 mg PO DAILY Magnesium Hydroxide [Milk of Magnesia] Med 03/21/18 06:50 Active 30 ml PO BID PRN Morphine Med 03/21/18 06:50 Active 2 mg IVPUSH Q2H PRN Multivitamins,Therapeutic [Thera] Med 03/22/18 09:00 Active 1 each PO DAILY Naloxone [Narcan] Med 03/21/18 06:50 Active 0.1 mg IVPUSH Q5M PRN Ondansetron [Zofran] Med 03/21/18 06:50 Active 4 mg IVPUSH Q6H PRN Patient's Own Medication [Ptom] Med 03/22/18 09:00 Active 0 each PO DAILY Potassium Chloride [Klor-Con M20] Med 03/21/18 21:00 Active 20 meq PO BID Rosuvastatin [Crestor] Med 03/22/18 09:00 Active 20 mg PO DAILY Sennosides [Senna] Med 03/21/18 06:50 Active 8.6 mg PO BID PRN Tamsulosin [Flomax] Med 03/22/18 09:00 Active 0.4 mg PO DAILY Antiembolic Hose [OM.PC] Per Unit Routine Oth 03/21/18 06:52 Ordered Ice Therapy [OM.PC] Per Unit Routine Oth 03/21/18 06:51 Ordered Sequential Compression Device [OM.PC] Per Unit Routine Oth 03/21/18 06:50 Ordered Resuscitation Status Routine Resus Stat 03/21/18 06:50 Ordered Medication Orders Aspirin (Ecotrin) 325 mg PO BID [facility] Bisacodyl (Dulcolax) 5 mg PO DAILY PRN PRN Reason: Constipation Carvedilol (Coreg) 12.5 mg PO BID [facility] Last Admin: 03/21/18 20:54 Dose: 12.5 mg Cholecalciferol (Vitamin D3) 5,000 unit PO DAILY [facility] Cyclobenzaprine HCl (Flexeril) 10 mg PO TID PRN PRN Reason: Spasms Docusate Sodium (Colace) 100 mg PO BID [facility] Last Admin: 03/21/18 20:53 Dose: 100 mg Famotidine (Pepcid) 20 mg PO Q12H [facility] Last Admin: 03/21/18 20:54 Dose: 20 mg Gemfibrozil (Lopid) 600 mg PO BID [facility] Last Admin: 03/21/18 20:53 Dose: 600 mg Lisinopril (Prinivil) 40 mg PO DAILY [facility] Magnesium Hydroxide (Milk Of Magnesia) 30 ml PO BID PRN PRN Reason: Constipation Morphine Sulfate (Morphine) 2 mg IVPUSH Q2H PRN PRN Reason: Breakthrough Pain Multivitamins (Thera) 1 each PO DAILY [facility] Naloxone HCl (Narcan) 0.1 mg IVPUSH Q5M PRN PRN Reason: Oversedation Ondansetron HCl (Zofran) 4 mg IVPUSH Q6H PRN PRN Reason: Nausea/Vomiting Last Admin: 03/21/18 15:38 Dose: 4 mg Oxycodone/Acetaminophen (Percocet 325-5 Mg) 1 - 2 tab PO Q4H PRN PRN Reason: Pain Last Admin: 03/22/18 06:24 Dose: 2 tab Admin: 03/22/18 01:13 Dose: 2 tab Admin: 03/21/18 20:51 Dose: 2 tab Admin: 03/21/18 14:00 Dose: 2 tab Chlorthalidone 50 Mg 0 each PO DAILY [facility] Potassium Chloride (Klor-Con M20) 20 meq PO BID [facility] Last Admin: 03/21/18 20:53 Dose: 20 meq Rosuvastatin Calcium (Crestor) 20 mg PO DAILY [facility] Senna (Senna) 8.6 mg PO BID PRN PRN Reason: Constipation Tamsulosin HCl (Flomax) 0.4 mg PO DAILY [facility] - Assessment Assessment (Free Text/Narrative):: POD#1 - left TKA - Plan Plan (Free Text/Narrative):: 1. Hgb 12.8. 2. Discharge to home today if therapy goals met and cleared by Hospitalist service. 3. 325mg ASA BID. 4. Frequent mobility, TEDs. The pt's case was discussed with Dr. Koch.
--- NOTE | 2018-03-22 08:08 | PCM48HPAN ---
Post Anesthesia Note - EVALUATION WITHIN 48HRS OF ANESTHETIC Vital Signs in Normal Range: Yes Patient Participated in Evaluation: Yes Respiratory Function Stable: Yes Airway Patent: Yes Cardiovascular Function Stable: Yes Hydration Status Stable: Yes Pain Control Satisfactory: Yes Nausea and Vomiting Control Satisfactory: Yes Mental Status Recovered: Yes - COMMENTS/OBSERVATIONS Free Text/Narrative:: Doing well. Patient denies any anesthetic complications
[2018-03-22] MEDS: Ondansetron 4 MG/2 ML SDV IVPUSH PRN (08:45)
[2018-03-22] MEDS: Gemfibrozil 600 MG Tab PO SCH (08:48)
[2018-03-22] MEDS: Carvedilol 12.5 MG Tab PO SCH (08:48)
[2018-03-22] MEDS: Famotidine 20 MG Tab PO SCH (08:48)
[2018-03-22] MEDS: Docusate Sodium 100 MG Cap PO SCH (08:48)
[2018-03-22 08:49] VITALS: BP 127/56
[2018-03-22] MEDS: Potassium Chloride 20 MEQ Tab.ER PO SCH (08:49)
[2018-03-22] MEDS ORDERED: Chlorthalidone 50 MG PO SCH (09:00)
[2018-03-22] MEDS ORDERED: Lisinopril 20 MG Tab PO SCH (09:00)
[2018-03-22] MEDS ORDERED: Multivitamins,Therapeutic Tab PO SCH (09:00)
[2018-03-22] MEDS ORDERED: Cholecalciferol (Vitamin D3) 5,000 UNIT Tab PO SCH (09:00)
[2018-03-22] MEDS ORDERED: Aspirin 325 MG Tab.EC PO SCH (09:00)
[2018-03-22] MEDS ORDERED: Mupirocin Oint 22 GM Tube TOP SCH (09:00)
[2018-03-22] MEDS ORDERED: Tamsulosin 0.4 MG Cap.ER PO SCH (09:00)
[2018-03-22] MEDS ORDERED: Rosuvastatin 10 MG Tab PO SCH (09:00)
--- NOTE | 2018-03-28 14:35 | PCM.OPNOTE ---
- General Post-Op/Procedure Note Date of Surgery/Procedure: 03/21/18 Operative Procedure(s): left total knee arthroplasty Pre Op Diagnosis: left knee osteoarthrosis Post-Op Diagnosis: Same Anesthesia Technique: Local, MAC, Spinal Primary Surgeon: Regan Koch Anesthesia Provider: Uri Marino Aerospace Engineer Officer Armament: Sharonda Cason Aerospace Engineer Officer Armament: Marissa Mena in mLs: 5 Complications: None Condition: Good Free Text/Narrative:: size 5/5 11mm 35x10 cemented
--- NOTE | 2018-03-28 14:57 | OR ---
DATE OF OPERATION: 03/21/2018 SURGEON: Regan Koch MD OPERATION PERFORMED: Left total knee arthroplasty. PREOPERATIVE DIAGNOSIS: Left knee osteoarthrosis. POSTOPERATIVE DIAGNOSIS: Left knee osteoarthrosis. ANESTHESIA: Local MAC with spinal. ANESTHESIA PROVIDER: Uri Marino CRNA [employer] PROFESSOR: Sharonda Cason PA-C, and Marissa Mena LPN. ESTIMATED BLOOD LOSS: 5 mL COMPLICATIONS: None. CONDITION: Stable. IMPLANTS: 1. [place] size 5 PS cemented femur. 2. [place] size 5 universal tibial base plate. 3. [place] size 5 11 mm PS X3 polyethylene. 4. Mecca size 35 x 10 mm cemented asymmetric patella. DESCRIPTION OF PROCEDURE: The patient was identified in the preop holding area. Proper site was marked and identified by the surgeon. The patient was taken back to the operating theater. After adequate anesthesia, the patient's left lower extremity had a nonsterile tourniquet applied and it was then sterilely prepped and draped in the usual sterile fashion. OR timeout was performed. The patient received 2 g IV Ancef. At this time, left lower extremity was exsanguinated. Tourniquet was insufflated to 300 mmHg. Standard medial parapatellar incision was made. Medial parapatellar arthrotomy was created. Deep fibers of the MCL were raised and anterior fat pad was resected. At this time, attention was turned to the patella. Patella measured a 24, it was resected to a 14 for a 35 x 10 mm patella. Drill holes were then drilled and found to be in adequate position. The drill was then drilled in the distal femur and the intramedullary distal femoral cutting guide was then placed. 10 mm was resected off the distal femur and was found to be an adequate resection. Sizing guide was placed. It was found to be a size 5 femur that was shown on the implant record at the beginning of this dictation. The drill holes were drilled for the epicondylar axis using Whitesides line and epicondyles as reference. At this time, the 4-in-1 cutting block was placed. An anterior posterior and anterior and posterior chamfer cuts were then completed. The correct size box cut was then placed and the box cut was completed and found to be an adequate resection. Attention was turned to the tibia. The posterior medial lateral retractors were placed. The extramedullary tibial guide was placed. It was placed in the old footprint of the ACL. It was aligned with the center of the ankle and 0 degrees of slope, 9 mm was then resected off the unaffected lateral side. There was found to be an acceptable reduction. At this time, posterior osteophytes were removed along with medial and lateral meniscus. A trial implant was placed with a correct sized tibia that was mentioned at the beginning of the dictation. A Mecca size 5 11 mm PS X3 polyethylene was then placed. The patient's knee was brought through range of motion. The patella was tracking centrally and was stable to varus and valgus stress. Alignment was found to be roughly at 0 degrees. At this time, cement was mixed on the back table. The tibia was stamped and drilled in proper rotation. All cut surfaces were irrigated with pulse lavage irrigation with Ancef and then completely dried. Once this was completed, then the cement was ready. The universal tibial base plate was cemented in place. Next, the Mecca size 5 PS cemented femur cemented into place and the Mecca size 5 11 mm PS X3 polyethylene was placed. The patient's knee was brought into full extension. Excess cement was removed. The patella was then cemented in place at this time. Tourniquet was deflated. One liter dilute Betadine solution was irrigated through the knee along with 3 L of pulse lavage irrigation with Ancef. Periarticular injection was then completed. The patient's knee was brought through a range of motion. Once the cement had time to set up and it was found to be stable to varus valgus stress, the patella was tracking centrally with full range of motion. At this time, a #2 barbed suture was used for closure of the medial parapatellar arthrotomy. Topical tranexamic acid was placed. 2-0 Vicryl was used subcutaneously, a running 3-0 Monocryl was used subcuticularly. The patient tolerated the procedure well and was sent to the PACU in stable condition. MMLAUREN /[id number]
== END 2018-03-22 15:05 | disposition home or self-care (01) ==
LOC: JD.SDS 06:29 → JD.MS 11:15 → JD.SDS 03-22 15:05
PROVIDERS: ATTEND Orthopaedic Surgery
DX: M17.0 Bilateral primary osteoarthritis of knee (principal); M54.16 Radiculopathy, lumbar region; I25.10 Atherosclerotic heart disease of native coronary artery without angina pectoris; I10 Essential (primary) hypertension; E11.9 Type 2 diabetes mellitus without complications; F41.9 Anxiety disorder, unspecified; N40.0 Benign prostatic hyperplasia without lower urinary tract symptoms; Z79.82 Long term (current) use of aspirin; Z79.899 Other long term (current) drug therapy
CPT/HCPCS: 27447; 36415; 64447; 73560; 80053; 82962; 85027; 87641; 94760; 97110; 97116; 97161; 97165; 97535; A9270; C1713; C1776; J0171; J0690; J0697; J1885; J2270; J2405; J2704; J2795; J3010; J3370; J3490; J7040; J7120; 01402; 64450; J2001

== ENCOUNTER 2022-02-09 07:24 | Day surgery (SDC) | payer MEDICARE, OTHER ==
[~2022-02-09 07:24] MED LIST changes: -Lactated Ringers 1,000 ML IV SCH; +Lidocaine 1% 2 ML ONE; -Lidocaine 1%/Sod Bicarbonate in NS 8.4% 1 ML Syringe IDERM PRN; +Midazolam 1 MG/ML 2 ML SDV ONE; +Ondansetron 4 MG/2 ML SDV IVPUSH PRN; +Ondansetron 4 MG/2 ML SDV ONE; -Pregabalin 25 MG Cap PO SCH; +Propofol 200 MG/20 ML SDV ONE; +Rocuronium 50 MG/5 ML Vial ONE; +Ropivacaine 0.5% 5 MG/ML 30 ML SDV ONE; -Sodium Chloride 0.9% 10 ML Syringe FLUSH PRN; +Vancomycin 1 GM SDV ONE; +fentaNYL 100 MCG/2 ML SDV IVPUSH PRN; +fentaNYL 250 MCG/5 ML SDV ONE
[2022-02-09] MEDS ORDERED: Phenylephrine HCl In 0.9% NaCl 1 MG/10 ML Vial ONE (08:00)
[2022-02-09] MEDS ORDERED: Sugammadex Sodium 200 MG/2 ML VIAL ONE (08:58)
[2022-02-09] MEDS ORDERED: Pregabalin 25 MG Cap PO SCH (09:45)
[2022-02-09] MEDS: HYDROmorphone 0.5 MG/0.5 ML Syringe IVPUSH PRN ×2 (10:26→10:40)
[2022-02-09] MEDS ORDERED: Ketorolac 15 MG/ML SDV IVPUSH SCH (11:00)
[2022-02-09] MEDS ORDERED: Cyclobenzaprine 10 MG Tab PO PRN (13:39)
[2022-02-09] MEDS ORDERED: Naloxone 0.4 MG/ML SDV IVPUSH PRN (13:39)
[2022-02-09] MEDS ORDERED: oxyCODONE 5 MG Tab PO PRN ×2 (13:39→14:15)
[2022-02-09 15:23] VITALS: BP 137/73; PULSE 75
== END 2022-02-09 18:11 | disposition home or self-care (01) ==
LOC: JD.SDS 07:24 → EDSTATUS 07:30 → JD.MS 11:49 → JD.SDS 18:11
PROVIDERS: ATTEND Orthopaedic Surgery
DX: M19.011 Primary osteoarthritis, right shoulder (principal); I25.10 Atherosclerotic heart disease of native coronary artery without angina pectoris; E11.9 Type 2 diabetes mellitus without complications; N40.0 Benign prostatic hyperplasia without lower urinary tract symptoms; E78.5 Hyperlipidemia, unspecified; Z95.1 Presence of aortocoronary bypass graft; Z98.890 Other specified postprocedural states; Z79.899 Other long term (current) drug therapy; Z90.49 Acquired absence of other specified parts of digestive tract; Z86.73 Personal history of transient ischemic attack (TIA), and cerebral infarction without residual deficits
CPT/HCPCS: 23472; 73020; 76000; 82947; 94760; 97110; 97161; 97166; A9270; C1713; C1769; C1776; J1170; J1885; J2250; J2405; J2704; J2795; J3010; J3370; J3490; 01638; 64415; 76942

== ENCOUNTER 2023-04-19 06:05 | Day surgery (SDC) | payer MEDICARE, OTHER ==
[~2023-04-19 06:05] MED LIST changes: -Acetaminophen 325 MG Tab PO SCH; +Lactated Ringers 1,000 ML IV SCH; -Lidocaine 1% 2 ML ONE; +Lidocaine 1% 4 ML ONE; -Midazolam 1 MG/ML 2 ML SDV ONE; -Ondansetron 4 MG/2 ML SDV IVPUSH PRN; -Ondansetron 4 MG/2 ML SDV ONE; -Rocuronium 50 MG/5 ML Vial ONE; -Ropivacaine 0.5% 5 MG/ML 30 ML SDV ONE; +Sodium Chloride 0.9% 10 ML Syringe FLUSH PRN; +Sodium Chloride 0.9% 10 ML Syringe FLUSH SCH; -Vancomycin 1 GM SDV ONE; +ceFAZolin 2 GM Vial ONE; -fentaNYL 100 MCG/2 ML SDV IVPUSH PRN; +fentaNYL 100 MCG/2 ML SDV ONE; -fentaNYL 250 MCG/5 ML SDV ONE; -oxyCODONE ER 10 MG TAB.ER PO SCH
[2023-04-19] MEDS ORDERED: Lidocaine 1% 10 ML MDV ONE (06:42)
[2023-04-19] MEDS ORDERED: Bupivacaine 0.25% 10 ML SDV ONE (06:42)
[2023-04-19 09:31] VITALS: BP 130/76; PULSE 59
== END 2023-04-19 08:35 | disposition home or self-care (01) ==
LOC: JD.SDS 06:05
PROVIDERS: ATTEND Orthopaedic Surgery
DX: G56.02 Carpal tunnel syndrome, left upper limb (principal); N40.0 Benign prostatic hyperplasia without lower urinary tract symptoms; I25.10 Atherosclerotic heart disease of native coronary artery without angina pectoris; E11.9 Type 2 diabetes mellitus without complications; I10 Essential (primary) hypertension; Z95.1 Presence of aortocoronary bypass graft; Z79.899 Other long term (current) drug therapy; E78.00 Pure hypercholesterolemia, unspecified; M54.9 Dorsalgia, unspecified; G89.29 Other chronic pain
CPT/HCPCS: 64721; J0690; J2704; J3010; J3490; J7120; 01810; 99100